=== PATIENT | female | born 1995 | race Caucasian/White ===

== ENCOUNTER 2018-09-20 20:46 | Emergency (ER) | payer MEDICAID ==
[2018-09-20] MEDS ORDERED: NS 1,000 ML IV ONE ×3 (21:35→23:42)
[2018-09-20] MEDS ORDERED: PROMETHAZINE HCL 25 MG/ML INJ IVP ONE (21:35)
[2018-09-20] MEDS ORDERED: PROMETHAZINE HCL 25 MG/ML INJ ONE (21:35)
--- NOTE | 2018-09-20 21:35 | EDPHY ---
General Time Seen by Provider: 09/20/18 21:28 Narrative: CHIEF COMPLAINT: Sore throat, fever, body aches, vomiting HISTORY OF PRESENT ILLNESS: Patient presents by private vehicle with complaints of sore throat, fever, body aches. Symptoms started abruptly last night. The been mild to moderate. She has had a temperature at home, measured at 102 by mouth. She has no neck pain or stiffness. No headache at this time, but she does occasionally have with her fever. Her sore throat is her primary complaint. She says it is very severe. Tolerating liquids but decreased solids. She has no abdominal pain. No urinary complaints. No vaginal bleeding or discharge. No pelvic pain. She reports 20 weeks , . She has no other associated complaints or modifying factors. REVIEW OF SYSTEMS: 10 systems were reviewed and negative with the exception of the elements mentioned in the history of present illness. PCP: [facility] SPECIALISTS: None PAST MEDICAL HISTORY: Recently treated for BV and Chlamydia. No ongoing diagnoses. PAST SURGICAL HISTORY: No previous surgical history. SOCIAL HISTORY: Nonsmoker. Lives independently with her spouse. FAMILY HISTORY: Noncontributory EXAMINATION: Vitals: Triage VS reviewed General Appearance: Alert, no distress. Conversing in full sentences. Ambulatory. Head: normocephalic, atraumatic Eyes: Pupils equal and round, no conjunctival pallor or injection. EOM symmetric. ENT, Mouth: Mucous membranes moist. Uvula midline. The posterior pharynx is erythematous with symmetric tonsillar enlargement and exudate. There is no asymmetry. No trismus. No stridor. Neck: Normal inspection, supple, non-tender. No meningismus or rigidity. Respiratory: Lungs are clear to auscultation Cardiovascular: Tachycardic rate. Regular rhythm. No murmur. Gastrointestinal: Abdomen is soft and nontender no tympany rigidity. Back: non-tender, no bony abnormalities Neurological: A&O, nonfocal, normal gait Skin: Warm and dry, no rash Extremities: Nontender, no pedal edema Psychiatric: Mood and affect normal DIFFERENTIAL DIAGNOSES: Including but not limited to strep pharyngitis, viral pharyngitis, infectious mononucleosis, influenza, sepsis MDM: 9:25 p.m. 24 hr of reported fever, body aches, sore throat and 1 episode of vomiting. She has reportedly 19 half weeks . She has no abdominal pain, no vaginal bleeding or discharge. No pelvic pain. Her sore throat is her primary complaint. She has been able to eat and drink but she is very painful when doing so. She has like taken Tylenol once. She has no meningismus. No severe headache. Her vital signs do reveal tachycardia and borderline fever. I have ordered IV fluid, laboratory studies including strep test. She is in no acute distress. 10:13 p.m. Rapid strep test negative. 10:30 p.m. [place] test negative. Influenza pending. Patient re-evaluated. She is feeling better but still mildly tachycardic. I have ordered a 2nd L fluid. I have discussed with Dr. Wolf and we will obtain urinalysis as well. 12:00 a.m. Urinalysis shows no infection but does show some ketones. She was mildly lightheaded when ambulating, thus 1/3 L of IV fluid as been ordered. 1:05 a.m. Patient re-evaluated. She is feeling better but mildly tachycardic still. She has received 3 L IV fluid. 2:00 a.m. Patient re-evaluated. She is feeling much better. Heart rate has improved. She has minimal complaints. We discussed discharge home with increase hydration and nausea medication. We discussed strict ED precautions for any chest pain, worsening symptoms or persistent vomiting. Both she and her spouse are comfortable this plan. She would like to be discharged home. Discharged stable condition SUPERVISION: Patient was independently examined, but I discussed the case with my secondary supervising physician Dr. Wolf CONSULTATION: - History Smoking Status: Never smoked - Objective Vital Signs: Initial Vital Signs Temperature (C) 100.6 F 09/20/18 20:56 Heart Rate 116 H 09/20/18 20:56 Respiratory Rate 20 09/20/18 20:56 Blood Pressure 119/70 09/20/18 20:56 O2 Sat (%) 96 09/20/18 20:56 O2 Delivery Mode Room Air Allergies/Adverse Reactions: No Known Allergies Allergy (Unverified 09/20/18 20:56) Home Medications: Medication Instructions Recorded Progesterone 09/20/18 Amoxicillin Trihydrate [Amoxil] 1,000 mg PO DAILY #7 cap 09/21/18 Promethazine HCl [Phenergan 25mg 25 mg PO Q8 PRN #12 tab 09/21/18 (*)] Microbiology Results: MICROBIOLOGY 09/21/18 00:00 Urine,Clean Catch Urine Culture - Preliminary Medications Given: Discontinued Medications Acetaminophen (Tylenol) 650 mg PO EDNOW ONE Stop: 09/20/18 22:11 Last Admin: 09/20/18 22:31 Dose: 650 mg Amoxicillin (Amoxicillin) 1,000 mg PO EDNOW ONE PRN Reason: Protocol Stop: 09/21/18 01:14 Last Admin: 09/21/18 01:43 Dose: 1,000 mg Sodium Chloride (Ns) 1,000 mls @ 0 mls/hr IV EDNOW ONE; Wide Open PRN Reason: Protocol Stop: 09/20/18 21:36 Last Admin: 09/20/18 21:42 Dose: 1,000 mls Sodium Chloride (Ns) 1,000 mls @ 0 mls/hr IV EDNOW ONE; Wide Open PRN Reason: Protocol Stop: 09/20/18 22:40 Last Admin: 09/20/18 22:41 Dose: 1,000 mls Sodium Chloride (Ns) 1,000 mls @ 0 mls/hr IV ONCE ONE PRN Reason: Wide Open Stop: 09/20/18 23:43 Last Admin: 09/20/18 23:47 Dose: 1,000 mls Promethazine HCl (Phenergan) 12.5 mg IVP ONCE ONE Stop: 09/20/18 21:36 Last Admin: 09/20/18 21:42 Dose: 12.5 mg Departure - Departure Disposition: Home, Routine, Self-Care Clinical Impression: Acute pharyngitis Qualifiers: Pharyngitis/tonsillitis etiology: unspecified etiology Qualified Code(s): J02.9 - Acute pharyngitis, unspecified Nausea & vomiting Qualifiers: Vomiting type: unspecified Vomiting Intractability: non-intractable Qualified Code(s): R11.2 - Nausea with vomiting, unspecified Condition: Good Instructions: Dehydration (ED), Pharyngitis (ED), Strep Throat (ED) Additional Instructions: 1. Amoxicillin 1000 mg once daily for 7 days 2. Increase fluid intake for the next few days 3. Tylenol 650 mg every 6 hr as needed 4. Promethazine as prescribed as needed for nausea 5. Strict ED precautions for any chest pain, shortness of breath, abdominal pain , pelvic pain, neck pain or stiffness Referrals: Woo Talamantes MD [Medical Doctor] - As per Instructions Stand Alone Forms: Work Excuse Prescriptions: Amoxicillin Trihydrate [Amoxil] 1,000 mg PO DAILY #7 cap Promethazine HCl [Phenergan 25mg (*)] 25 mg PO Q8 PRN #12 tab PRN Reason: Nausea/Vomiting, Use 1st
[2018-09-20] MEDS ORDERED: ACETAMINOPHEN 325 MG TAB PO ONE (22:10)
[2018-09-21 01:48] VITALS: BP 107/65
== END 2018-09-21 01:46 | disposition home or self-care (01) ==
DX: J20.9 Acute bronchitis, unspecified (principal); R11.2 Nausea with vomiting, unspecified; E86.9 Volume depletion, unspecified
CPT/HCPCS: 96374; J2550